=== PATIENT | male | born 1985 | race Caucasian/White ===

== ENCOUNTER 2020-01-25 19:08 | Emergency (ER) | payer MEDICAID ==
[~2020-01-25] VITALS: Ht 175.3 cm; Wt 83.8 kg
[2020-01-25 19:12] VITALS: BP 136/93
[2020-01-25] MEDS ORDERED: normal saline 1000ML IV soln IVB ONE (20:05)
[2020-01-25 20:41] LABS: ALANINE AMINOTRANSFERASE 17 U/L (12-78); ALBUMIN 4.5 G/DL (3.4-5.0); ALKALINE PHOSPHATASE 93 IU/L (46-116); ANION GAP 11 (8-16); BILIRUBIN,TOTAL 0.5 MG/DL (0.1-1.0); BLOOD UREA NITROGEN 9 MG/DL (7-18); BUN/CREATININE RATIO 7.2 (5.4-32.0); CALCIUM 9.5 MG/DL (8.5-10.1); CHLORIDE 102 MMOL/L (99-107); CREATININE 1.25 MG/DL (0.60-1.10); GLUCOSE 91 MG/DL (70-104); SODIUM 135 MMOL/L (135-145); TOTAL PROTEIN 9.2 G/DL (6.4-8.2); eGFR 65 ML/MIN
[2020-01-25 20:50] LABS: ASPARTATE AMINO TRANSFERASE 35 U/L (10-37); POTASSIUM 4.8 MMOL/L (3.5-5.1)
== END 2020-01-25 20:50 | disposition left against medical advice (07) ==
LOC: ER 19:08
DX: R42 Dizziness and giddiness (principal); F11.90 Opioid use, unspecified, uncomplicated
CPT/HCPCS: 36415; 80053; 99283

== ENCOUNTER 2020-02-19 19:01 | Emergency (ER) | payer MEDICAID ==
[~2020-02-19] VITALS: Ht 172.7 cm; Wt 84.1 kg
[2020-02-19 19:11] VITALS: BP 151/94
[2020-02-19] MEDS ORDERED: ONDA4TAB6 PO (21:35)
[2020-02-19] MEDS ORDERED: CLON-528 PO (21:35)
[2020-02-19] MEDS ORDERED: LORazepam 1 MG tablet PO ONE (21:35)
[2020-02-19] MEDS ORDERED: ondansetron 4mg rapidly disintigrating tab PO ONE (21:35)
== END 2020-02-19 22:24 | disposition home or self-care (01) ==
LOC: ER 19:01
DX: F11.10 Opioid abuse, uncomplicated (principal); Z72.89 Other problems related to lifestyle; Z79.899 Other long term (current) drug therapy; R68.83 Chills (without fever)
CPT/HCPCS: 99283

== ENCOUNTER 2020-02-20 21:08 | Emergency (ER) | payer MEDICAID ==
[~2020-02-20] VITALS: Ht 175.3 cm; Wt 84.1 kg
[~2020-02-20 21:08] MED LIST: CLON-528 PO; ONDA4TAB6 PO
[2020-02-20] MEDS ORDERED: acetaminophen 325mg tablet PO ONE (22:20)
[2020-02-20 22:43] LABS: BASOPHILS # (AUTO) 0.1 X10'3 (0-0.2); BASOPHILS % (AUTO) 0.6 % (0-1); EOSINOPHILS # (AUTO) 0.2 X10'3 (0-0.9); EOSINOPHILS % (AUTO) 1.4 % (0-6); HEMATOCRIT 38.3 % (42.0-52.0); HEMOGLOBIN 12.5 g/dl (14.0-17.9); LYMPHOCYTES # (AUTO) 3.7 X10'3 (1.1-4.8); LYMPHOCYTES % (AUTO) 29.3 % (21-51); MEAN CORPUSCULAR HEMOGLOBIN 28.8 PG (27.0-31.0); MEAN CORPUSCULAR HGB CONC 32.8 g/dL (33.0-36.5); MEAN CORPUSCULAR VOLUME 87.9 FL (78-98); MEAN PLATELET VOLUME 7.8 FL (7.4-10.4); MONOCYTES # (AUTO) 1.2 X10'3 (0-0.9); MONOCYTES % (AUTO) 9.4 % (2-12); NEUTROPHILS # (AUTO) 7.5 X10'3 (1.8-7.7); NEUTROPHILS % (AUTO) 59.3 % (42-75); PLATELET COUNT 291 X10'3 (140-440); RED BLOOD COUNT 4.35 X10'6 (4.70-6.10); RED CELL DISTRIBUTION WIDTH 15.4 % (11.5-14.5); WHITE BLOOD COUNT 12.6 X10'3 (4.5-11.0)
[2020-02-20 22:58] LABS: ALANINE AMINOTRANSFERASE 19 U/L (12-78); ALBUMIN 3.8 G/DL (3.4-5.0); ALKALINE PHOSPHATASE 92 IU/L (46-116); ANION GAP 7 (8-16); ASPARTATE AMINO TRANSFERASE 16 U/L (10-37); BILIRUBIN,TOTAL 0.1 MG/DL (0.1-1.0); BLOOD UREA NITROGEN 19 MG/DL (7-18); BUN/CREATININE RATIO 17.6 (5.4-32.0); CHLORIDE 102 MMOL/L (99-107); CREATININE 1.08 MG/DL (0.60-1.10); ETHANOL < 0.010 GM/DL (0.0-0.010); GLUCOSE 106 MG/DL (70-104); POTASSIUM 4.3 MMOL/L (3.5-5.1); SODIUM 137 MMOL/L (135-145); TOTAL CARBON DIOXIDE 27.7 MMOL/L (24-32); TOTAL PROTEIN 7.6 G/DL (6.4-8.2); eGFR 77 ML/MIN
[2020-02-20] MEDS ORDERED: buprenorphine/naloxone 2-0.5mg sublingual tablet SL SCH (23:15)
[2020-02-21] MEDS ORDERED: NALO4SPR BOTHNARES
[2020-02-21] MEDS ORDERED: BUPR1FIL5 SL
[2020-02-21 00:09] VITALS: BP 139/88
== END 2020-02-21 00:10 | disposition home or self-care (01) ==
LOC: ER 21:08
DX: F11.23 Opioid dependence with withdrawal (principal); R09.89 Other specified symptoms and signs involving the circulatory and respiratory systems; Z72.89 Other problems related to lifestyle; Z79.899 Other long term (current) drug therapy
CPT/HCPCS: 36415; 80053; 80320; 85025; 99283

== ENCOUNTER 2020-02-21 15:34 | Emergency (ER) | payer MEDICAID ==
[~2020-02-21] VITALS: Ht 172.7 cm; Wt 84.1 kg
[~2020-02-21 15:34] MED LIST changes: +BUPR1FIL5 SL; +NALO4SPR BOTHNARES
[2020-02-21 15:39] VITALS: BP 138/85
[2020-02-21] MEDS ORDERED: buprenorphine/naloxone 2-0.5mg sublingual tablet SL ONE (16:22)
[2020-02-22] MEDS ORDERED: buprenorphine/naloxone 8MG-2MG SUBlingual film SL SCH (08:00)
== END 2020-02-21 16:32 | disposition home or self-care (01) ==
LOC: ER 15:34
DX: R11.2 Nausea with vomiting, unspecified (principal); R68.83 Chills (without fever); F17.200 Nicotine dependence, unspecified, uncomplicated; F11.90 Opioid use, unspecified, uncomplicated; Z72.89 Other problems related to lifestyle; Z79.899 Other long term (current) drug therapy
CPT/HCPCS: 99281; 99283

== ENCOUNTER 2020-02-21 21:10 | Emergency (ER) | payer MEDICAID ==
[~2020-02-21] VITALS: Ht 172.7 cm; Wt 81.8 kg
[2020-02-21 21:19] VITALS: BP 128/70
== END 2020-02-21 22:47 | disposition home or self-care (01) ==
LOC: ER 21:11
DX: S90.829A Blister (nonthermal), unspecified foot, initial encounter (principal); F17.200 Nicotine dependence, unspecified, uncomplicated; F11.90 Opioid use, unspecified, uncomplicated; Z72.89 Other problems related to lifestyle; Z79.899 Other long term (current) drug therapy; X58.XXXA Exposure to other specified factors, initial encounter; Y93.89 Activity, other specified; Y92.89 Other specified places as the place of occurrence of the external cause; Y99.8 Other external cause status
CPT/HCPCS: 99281

== ENCOUNTER 2020-04-08 11:14 | Emergency (ER) | payer MEDICAID ==
[~2020-04-08] VITALS: Ht 172.7 cm; Wt 84.1 kg
[2020-04-08 11:32] VITALS: BP 116/80
[2020-04-08] MEDS ORDERED: cephalexin 250mg capsule PO ONE (11:55)
[2020-04-08] MEDS ORDERED: clindamycin 150mg capsule PO ONE (11:55)
[2020-04-08] MEDS ORDERED: CLIN150C8 PO (11:59)
[2020-04-08] MEDS ORDERED: CEPH500C5 PO (11:59)
== END 2020-04-08 12:09 | disposition home or self-care (01) ==
LOC: ER 11:14
DX: L02.31 Cutaneous abscess of buttock (principal); F11.90 Opioid use, unspecified, uncomplicated; Z72.89 Other problems related to lifestyle; Z79.899 Other long term (current) drug therapy
CPT/HCPCS: 99283

== ENCOUNTER 2020-05-06 18:59 | Emergency (ER) | payer MEDICAID ==
[~2020-05-06] VITALS: Ht 175.3 cm; Wt 86.4 kg
[~2020-05-06 18:59] MED LIST changes: +CEPH500C5 PO; +CLIN150C8 PO
--- NOTE | 2020-05-06 20:05 | NUR ---
PT REPORTS HE WAS IN A 60 DAY REHAB PROGRAM AND GOT OUT 2 DAYS AGO. DHRUV FRAUSTO UPDATED. PA NOW W/PT. WILL SWAB AND SEND OUT.
[2020-05-06 20:11] VITALS: BP 153/98
== END 2020-05-06 20:34 | disposition home or self-care (01) ==
LOC: ER 19:00
DX: R50.9 Fever, unspecified (principal); R42 Dizziness and giddiness; R11.0 Nausea; Z59.0 Homelessness; Z79.899 Other long term (current) drug therapy
CPT/HCPCS: 36415; 99282

== ENCOUNTER 2020-06-13 13:28 | Emergency (ER) | payer MEDICAID ==
--- NOTE | 2020-06-13 13:51 | NUR ---
Pt.'s name called with a response from the restroom "I'm in the bathroom"
[2020-06-13] MEDS ORDERED: NO HOME MEDS (23:13)
== END 2020-06-13 17:49 | disposition left against medical advice (07) ==
LOC: ER 13:28
DX: L08.9 Local infection of the skin and subcutaneous tissue, unspecified (principal); Z53.21 Procedure and treatment not carried out due to patient leaving prior to being seen by health care provider

== ENCOUNTER 2020-06-13 18:40 | Emergency (ER) | payer MEDICAID ==
[~2020-06-13] VITALS: Ht 175.3 cm; Wt 81.8 kg
[2020-06-13] MEDS ORDERED: normal saline 1000ml 1,000 ML IV ONE (19:55)
[2020-06-13] MEDS ORDERED: LIDOcaine 1% W/epiNEPHrine 1:200,000 10ml vial IJ ONE (19:55)
[2020-06-13] MEDS ORDERED: vancomycin/NS 1 GM ADD-VANTAGE 250 ML IV ONE (20:25)
[2020-06-13] MEDS ORDERED: piperacillin/tazo 3.375gm/50ml 50 ML IV ONE (20:25)
[2020-06-13 20:48] LABS: BASOPHILS # (AUTO) 0.1 X10'3 (0-0.2); BASOPHILS % (AUTO) 0.6 % (0-1); EOSINOPHILS # (AUTO) 0.1 X10'3 (0-0.9); EOSINOPHILS % (AUTO) 0.7 % (0-6); HEMATOCRIT 29.2 % (42.0-52.0); HEMOGLOBIN 9.8 g/dl (14.0-17.9); LYMPHOCYTES # (AUTO) 2.3 X10'3 (1.1-4.8); LYMPHOCYTES % (AUTO) 14.5 % (21-51); MEAN CORPUSCULAR HEMOGLOBIN 28.1 PG (27.0-31.0); MEAN CORPUSCULAR HGB CONC 33.4 g/dL (33.0-36.5); MEAN CORPUSCULAR VOLUME 84.2 FL (78-98); MEAN PLATELET VOLUME 7.8 FL (7.4-10.4); MONOCYTES # (AUTO) 1.8 X10'3 (0-0.9); MONOCYTES % (AUTO) 11.4 % (2-12); NEUTROPHILS # (AUTO) 11.3 X10'3 (1.8-7.7); NEUTROPHILS % (AUTO) 72.8 % (42-75); PLATELET COUNT 250 X10'3 (140-440); RED BLOOD COUNT 3.47 X10'6 (4.70-6.10); RED CELL DISTRIBUTION WIDTH 16.3 % (11.5-14.5); WHITE BLOOD COUNT 15.5 X10'3 (4.5-11.0)
[2020-06-13] MEDS ORDERED: iohexol 300mg/ml 100ml inj. ONE (20:56)
[2020-06-13 20:59] LABS: ALANINE AMINOTRANSFERASE 150 U/L (12-78); ALBUMIN 2.6 G/DL (3.4-5.0); ALBUMIN/GLOBULIN RATIO 0.5 (1.1-1.5); ALKALINE PHOSPHATASE 116 IU/L (46-116); ANION GAP 5 (8-16); ASPARTATE AMINO TRANSFERASE 21 U/L (10-37); BILIRUBIN,TOTAL 0.3 MG/DL (0.1-1.0); BLOOD UREA NITROGEN 13 MG/DL (7-18); BUN/CREATININE RATIO 14.3 (5.4-32.0); CALCIUM 8.3 MG/DL (8.5-10.1); CHLORIDE 99 MMOL/L (99-107); CREATININE 0.91 MG/DL (0.60-1.10); GLUCOSE 116 MG/DL (70-104); POTASSIUM 3.7 MMOL/L (3.5-5.1); SODIUM 133 MMOL/L (135-145); TOTAL CARBON DIOXIDE 29.2 MMOL/L (24-32); TOTAL PROTEIN 7.4 G/DL (6.4-8.2); eGFR > 90 ML/MIN
[2020-06-13] MEDS ORDERED: ondansetron/PF 4mg/2ml inj IV ONE (21:30)
[2020-06-13] MEDS ORDERED: morphine 4 MG/ML inj SYRINge IV ONE (21:30)
[2020-06-13] MEDS ORDERED: ondansetron/PF 4mg/2ml inj IV PRN (22:15)
[2020-06-13] MEDS ORDERED: magnesium hydroxide 30ml (MOM) UD suspension PO PRN (22:15)
[2020-06-13] MEDS ORDERED: magnesium 4gm in 100ml NS 100 ML IV PRN (22:15)
[2020-06-13] MEDS ORDERED: potassium Cl 20 mEq SR tablet PO PRN ×2 (22:15)
[2020-06-13] MEDS ORDERED: potassium Cl 40MEQ/1/2NS 520ml 520 ML IV PRN ×2 (22:15)
[2020-06-13] MEDS ORDERED: acetaminophen 325mg tablet PO PRN (22:15)
[2020-06-13] MEDS ORDERED: LORazepam 2 mg/ml vial IV PRN (22:15)
[2020-06-13] MEDS ORDERED: magnesium Cl slow-release 64mg tablet PO PRN (22:15)
[2020-06-13] MEDS ORDERED: mag hydrox/Alum hydrox/simeth 30ml oral suspension PO PRN (22:15)
[2020-06-13] MEDS ORDERED: magnesium 2GM in 50ml NS 50 ML IV PRN (22:15)
[2020-06-13] MEDS ORDERED: morphine 2 MG/ML inj. syringe IV PRN (22:15)
--- NOTE | 2020-06-13 22:20 | NUR ---
No Lidocaine administered by ED PA
[2020-06-13] MEDS ORDERED: NO HOME MEDS (23:13)
[2020-06-14] MEDS ORDERED: normal saline 1000ml 1,000 ML IV SCH (03:30)
--- NOTE | 2020-06-14 03:40 | NUR ---
pagged dr hudson for pain mangaement . medicated pt with 2 mg morphine q 3 hr as ordered
[2020-06-14] MEDS: morphine 2 MG/ML inj. syringe IV PRN ×2 (03:55→08:27)
[2020-06-14] MEDS ORDERED: piperacillin/tazo 3.375gm/50ml 50 ML IV SCH ×2 (04:00→04:40)
[2020-06-14 06:33] LABS: BASOPHILS # (AUTO) 0.1 X10'3 (0-0.2); BASOPHILS % (AUTO) 0.5 % (0-1); EOSINOPHILS # (AUTO) 0.1 X10'3 (0-0.9); EOSINOPHILS % (AUTO) 0.7 % (0-6); HEMATOCRIT 28.7 % (42.0-52.0); HEMOGLOBIN 9.5 g/dl (14.0-17.9); LYMPHOCYTES # (AUTO) 1.7 X10'3 (1.1-4.8); LYMPHOCYTES % (AUTO) 12.1 % (21-51); MEAN PLATELET VOLUME 7.7 FL (7.4-10.4); MONOCYTES # (AUTO) 1.6 X10'3 (0-0.9); MONOCYTES % (AUTO) 11.5 % (2-12); NEUTROPHILS # (AUTO) 10.3 X10'3 (1.8-7.7); NEUTROPHILS % (AUTO) 75.2 % (42-75); PLATELET COUNT 196 X10'3 (140-440); RED BLOOD COUNT 3.38 X10'6 (4.70-6.10); RED CELL DISTRIBUTION WIDTH 16.2 % (11.5-14.5); WHITE BLOOD COUNT 13.6 X10'3 (4.5-11.0)
[2020-06-14 06:34] LABS: ALANINE AMINOTRANSFERASE 128 U/L (12-78); ALBUMIN 2.5 G/DL (3.4-5.0); ALBUMIN/GLOBULIN RATIO 0.5 (1.1-1.5); ALKALINE PHOSPHATASE 115 IU/L (46-116); ANION GAP 6 (8-16); ASPARTATE AMINO TRANSFERASE 29 U/L (10-37); BILIRUBIN,TOTAL 0.5 MG/DL (0.1-1.0); BLOOD UREA NITROGEN 8 MG/DL (7-18); BUN/CREATININE RATIO 9.2 (5.4-32.0); CALCIUM 8.5 MG/DL (8.5-10.1); CHLORIDE 104 MMOL/L (99-107); CREATININE 0.87 MG/DL (0.60-1.10); GLUCOSE 110 MG/DL (70-104); MAGNESIUM 2.1 MG/DL (1.5-2.4); SODIUM 138 MMOL/L (135-145); TOTAL CARBON DIOXIDE 28.4 MMOL/L (24-32); TOTAL PROTEIN 7.5 G/DL (6.4-8.2); eGFR > 90 ML/MIN
[2020-06-14] MEDS ORDERED: K and/or MAG REPLACEMENT MC SCH (08:00)
[2020-06-14 08:46] VITALS: BP 138/90
[2020-06-14] MEDS ORDERED: VANCOMYCIN LEVEL IV ONE (09:30)
[2020-06-14] MEDS ORDERED: VANCOmycin 1250MG/NS 250ml Bag 250 ML IV SCH (10:00)
--- NOTE | 2020-06-14 10:05 | NUR ---
Despite educating pt on risk of not not staying to receive tx incuding up to , pt refused to stay. Dr. Gasca called and informed of pt stating he is leaving, received TVO for pt to sign AMA form. ED lost charge card clerk Robyn and self discussed again risks to pt and pt will not stay, paper signed, pt EJ PIV removed.
[2020-06-14] MEDS ORDERED: piperacillin/tazo 4.5gm/100ml 100 ML IV SCH (12:00)
[2020-06-14] MEDS ORDERED: lactobacillus rhamnosus 10,000 MMU CELLS/CAPSULE PO SCH (20:00)
[2020-06-15] MEDS ORDERED: VANCOMYCIN LEVEL IV ONE (21:30)
== END 2020-06-14 10:05 | disposition left against medical advice (07) ==
LOC: ER 18:41 → ED HOLD 22:11 → UNDOADMIN 22:11 → UNDODISIN 06-14 10:18
DX: L02.31 Cutaneous abscess of buttock (principal); F15.20 Other stimulant dependence, uncomplicated; Z53.29 Procedure and treatment not carried out because of patient's decision for other reasons
CPT/HCPCS: 36415; 73701; 80053; 83605; 83735; 84145; 85025; 87040; 96365; 96366; 96368; 96375; 96376; 99285; J2060; J2270; J2405; J2543; J3370; J7030; Q9967; G0378

== ENCOUNTER 2021-08-09 10:03 | Emergency (ER) | payer MEDICAID ==
[~2021-08-09] VITALS: Ht 172.7 cm; Wt 95.5 kg
[~2021-08-09 10:03] MED LIST changes: -BUPR1FIL5 SL; -CEPH500C5 PO; -CLIN150C8 PO; -CLON-528 PO; -NALO4SPR BOTHNARES; +NO HOME MEDS; -ONDA4TAB6 PO
[2021-08-09 10:08] VITALS: BP 164/93
[2021-08-09] MEDS ORDERED: LORA-269 PO (13:56)
== END 2021-08-09 14:23 | disposition home or self-care (01) ==
LOC: ER 10:03
DX: F41.9 Anxiety disorder, unspecified (principal); F11.90 Opioid use, unspecified, uncomplicated; Z72.89 Other problems related to lifestyle; Z59.00 Homelessness unspecified; Z79.899 Other long term (current) drug therapy
CPT/HCPCS: 99283

== ENCOUNTER 2023-02-05 20:33 | Emergency (ER) | payer MEDICAID ==
[~2023-02-05] VITALS: Ht 175.3 cm; Wt 90.9 kg
[~2023-02-05 20:33] MED LIST changes: +LORA-269 PO
[2023-02-05 20:49] VITALS: BP 161/91; PULSE 91; RESP 16; TEMP 98.2; O2SAT 97
[2023-02-05] MEDS ORDERED: MONT-47 PO (22:46)
[2023-02-05] MEDS ORDERED: BENZ-38 PO (22:46)
[2023-02-05] MEDS ORDERED: AZIT-103 PO (22:46)
== END 2023-02-05 22:58 | disposition home or self-care (01) ==
LOC: ER 20:34
DX: J22 Unspecified acute lower respiratory infection (principal); R05.9 Cough, unspecified; Z59.00 Homelessness unspecified; Z72.89 Other problems related to lifestyle; Z79.899 Other long term (current) drug therapy
CPT/HCPCS: 99283

== ENCOUNTER → 2023-02-06 | Emergency (ER) | payer MEDICAID ==
[~2023-02-06] MED LIST changes: +AZIT-103 PO; +BENZ-38 PO; +MONT-47 PO
== END | disposition left against medical advice (07) ==
LOC: ER 09:00
DX: Z02.79 Encounter for issue of other medical certificate (principal); Z53.21 Procedure and treatment not carried out due to patient leaving prior to being seen by health care provider